=== PATIENT | male | born 1990 | race African-American/Black ===

== ENCOUNTER 2024-06-04 21:30 | Emergency (ER) | payer OTHER, SELFPAY ==
[2024-06-04 21:33] VITALS: BP 220/146
[2024-06-04 21:51] VITALS: BP 214/146
[2024-06-04 22:00] VITALS: BP 210/139
[2024-06-04 22:07] VITALS: BMI 33.6
[2024-06-04 22:30] VITALS: BP 202/141
[2024-06-04 23:00] VITALS: BP 205/149
--- NOTE | 2024-06-04 23:09 | ED.GENMED ---
History of Present Illness
<Emma Rodriguez MD, Resident - Last Filed: 06/04/24 23:43>
General
Chief Complaint: Blood Pressure Problem
Source: patient
Exam Limitations: none
Time Seen by Provider: 06/04/24 22:51
Nursing documentation reviewed up to this point in time: agreed with except (patient is non compliant with his medications.)
Travel History
Have you traveled to any high risk areas for coronavirus over the past 14 days?: No
Have you had any contact with someone who has COVID-19?: No
Do you have any symptoms of coronavirus? Fever > 100 degrees, chills, cough, shortness of breath, sore throat, loss of taste or smell, muscle aches, or headache?: No
History of Present Illness
History of Present Illness:
Mr. Paige is a 33-year-old male with past medical history of hypertension, diabetes, description of heart failure with a YULISA evaluation presents to the ER from shelter for elevated hypertension-blood pressure at 239/140 upon arrival. Patient
stated that he had a diagnosis of hypertension for which he was on 5 different medications and had a recent hospitalization at [facility], records verified by my supervising provider Dr. Garibay. Patient was taking atorvastatin, carvedilol, Lasix,
losartan, spironolactone at home. Unfortunately he ran out of prescription and he lost access to his insurance as he lost his job, hence he did not take any medications over the last 3 days. During his most recent hospital admission in February he was
diagnosed to have severe mitral regurgitation with congestive heart failure, HFrEF ejection fraction at 40%, and was on GDMT. In 2017 patient had a HbA1c greater than 14 for which he was hospitalized, however after being on diabetic medications and
weight loss his HbA1c came down to 5.5 in February hospital admission and he was removed off of any diabetic medications.
Today with his elevated blood pressure he remains to be asymptomatic. He denies having any chest pain, palpitations, shortness of breath on exertion, orthopnea, PND, lightheadedness, blurring of vision, near syncopal or syncopal episodes, weakness
and altered sensation in his limbs, and paresthesias
Past History
<Emma Rodriguez MD, Resident - Last Filed: 06/04/24 23:43>
Past History
ED Past Medical History: Other (Hypertension, hyperlipidemia, diabetes mellitus-resolved, severe MR, HFmrEF-40% EF.)
ED Past Surgical History: None
Patient has exhibited threatening behavior?: No
Social History
Tobacco: Non-smoker
Alcohol: None
Drug: None
Personal: Single
Living: shelter
Employment: Not employed
Family History
Family History: Other
Review of Systems
<Emma Rodriguez MD, Resident - Last Filed: 06/04/24 23:43>
Review of Systems
Allergies reviewed?: Yes
All Other Systems: ROS reviewed and negative except as documented in HPI and ROS
Phy Exam
<Emma Rodriguez MD, Resident - Last Filed: 06/04/24 23:43>
General Physical Exam
General Presentation: well appearing and no apparent distress
General Skin: warm
General Habitus: normal
General Hydration: appears well hydrated
Cardiovascular Exam
Cardiovascular Exam: regular rate/rhythm, no edema, no gallop and systolic murmur
Systolic Murmur: 3/6
Heart Sounds: normal
Pulmonary Exam
Pulmonary Exam: lungs clear, no respiratory distress, no rales, no crackles and no rhonchi
Gastrointestinal Exam
Gastrointestinal Exam: normal bowel sounds, non tender, soft and non distended
NIH Stroke Score
Level of Consciousness: 0 - Alert
LOC questions: 0-Answers both correctly
LOC Commands: 0-Performs both correctly
Best Gaze: 0-Normal
Visual Herring: 0=Normal, no visual loss
Facial palsy: 0=Normal, symmetrical
Motor - Right Arm: 0=No drift 10 seconds
Motor - Left Arm: 0=No drift 10 seconds
Motor - Right Le-No drift 5 seconds
Motor - Left Le-No drift 5 seconds
Limb Ataxia: 0-Absent
Sensation: 0-Normal
Best Language: 0-No aphasia
Dysarthria: 0-Normal
Extinction and Inattention: 0-No abnormality
Total Score:: 0
Skin Exam
Skin Exam: normal color and warm/dry
Psychiatric Exam
Psychiatric Exam: normal mood/affect
Course
<Emma Rodriguez MD, Resident - Last Filed: 06/04/24 23:43>
Orders/Labs/Results
Orders:
Orders
06/04/24 21:37
ECG [Electrocardiogram (*1)] Urgent
Reason for Study: Hypertension, Benign
EKG- Treatment ONCE
06/04/24 23:02
Metoprolol [Lopressor] 5 mg IV NOW STA
06/04/24 23:17
Carvedilol [Coreg] 12.5 mg PO NOW STA
Furosemide [Lasix] 40 mg PO NOW STA
Losartan [Cozaar] 50 mg PO NOW STA
Spironolactone [Aldactone] 25 mg PO NOW STA
06/04/24 23:22
Atorvastatin [Lipitor] 20 mg PO NOW STA
06/04/24 23:02
06/04/24 23:02
Vital Signs
Initial and Last Documented VS:
Initial Vital Signs
Temp Pulse Resp BP Pulse Ox
97.8 F 78 18 220/146 100
06/04/24 21:33 06/04/24 21:33 06/04/24 21:33 06/04/24 21:33 06/04/24 21:33
Last Documented Vital Signs
Temp Pulse Resp BP Pulse Ox
97.8 F 82 23 210/139 100
06/04/24 21:33 06/04/24 22:00 06/04/24 22:00 06/04/24 22:00 06/04/24 22:00
<Gerda Garibay DO - Last Filed: 06/04/24 23:33>
Orders/Labs/Results
Orders:
Orders
06/04/24 21:37
ECG [Electrocardiogram (*1)] Urgent
Reason for Study: Hypertension, Benign
EKG- Treatment ONCE
06/04/24 23:02
Metoprolol [Lopressor] 5 mg IV NOW STA
06/04/24 23:17
Carvedilol [Coreg] 12.5 mg PO NOW STA
Furosemide [Lasix] 40 mg PO NOW STA
Losartan [Cozaar] 50 mg PO NOW STA
Spironolactone [Aldactone] 25 mg PO NOW STA
06/04/24 23:22
Atorvastatin [Lipitor] 20 mg PO NOW STA
06/04/24 23:02
06/04/24 23:02
Vital Signs
Initial and Last Documented VS:
Initial Vital Signs
Temp Pulse Resp BP Pulse Ox
97.8 F 78 18 220/146 100
06/04/24 21:33 06/04/24 21:33 06/04/24 21:33 06/04/24 21:33 06/04/24 21:33
Last Documented Vital Signs
Temp Pulse Resp BP Pulse Ox
97.8 F 82 23 210/139 100
06/04/24 21:33 06/04/24 22:00 06/04/24 22:00 06/04/24 22:00 06/04/24 22:00
<Emma Rodriguez MD, Resident - Last Filed: 06/04/24 23:43>
MDM/Problems Addressed
Differential Diagnosis Includes:
Severe hypertension due to lack of access to medications
MDM/Problems Addressed:
Resuming patient's on his home meds
Chronic conditions affecting care: HTN and Cardiomyopathy
Acute Exacerbation and/or Progression of Chronic Illness: Cardiomyopathy
<Emma Rodriguez MD, Resident - Last Filed: 06/04/24 23:43>
Comment
Comment:
Patient previous hospital records verified through [facility] by Dr. Garibay.
History of HFmrEF-40%, cardiomyopathy, on guideline directed medical therapy except SGLT2's, resume patient on his home meds-Coreg 12.5 mg p.o. twice daily, Lasix 20 mg p.o. daily, Lipitor 20 mg once a day, losartan 50 mg once a day, spironolactone
25 mg once a day. No labs needed. Patient eventually needs a primary care physician and follow-up with a bone drier.
*Critical Care Note
Total Time (30-74mins, 75-104mins- exclusive of procedures): Not Applicable
ED Attending Note
<Emma Rodriguez MD, Resident - Last Filed: 06/04/24 23:43>
-
Portions of this chart may have been created with voice recognition software.� Occasional wrong word or��sound alike� substitutions may have occurred due to the inherent limitations of voice recognition software.
<Gerda Garibay, DO - Last Filed: 06/04/24 23:33>
ED Attending Note
Patient seen and examined by attending physician: Yes
I performed a history and physical exam of patient and discussed management with resident, I reviewed resident's note and agree with documented findings and plan of care.: Yes
ED Attending Note:
This is a 33-year-old gentleman with longstanding history of hypertension as well as history of cov-gjgcsio-ckhdhsuic diabetes who presents with [facility] after being picked up on a outstanding warrant and being taken to [facility] where he was found to have significantly elevated blood pressure and sent to the ED for further evaluation. He remains completely asymptomatic.
He was hospitalized early February at [facility] with complaints of shortness of breath, found to be significantly hypertensive as well as mild CHF. Had not been taking any medications at that time.
Echocardiogram showed LVH, moderate to severe MR, global hypokinesis with a EF of 35 to 40%. Although history of diabetes, hemoglobin A1c excellent at 5.5.
He was started on losartan 50 mg, Coreg 12.5 mg twice daily, furosemide 40 mg once daily, Aldactone 25 mg once daily and atorvastatin 20 mg at bedtime.
Patient admits that he has not followed up since that hospitalization and has unfortunately ran out of his medications last week.
He remains active, has had no shortness of breath, no chest pain, no headache.
Previous diabetes with elevated hemoglobin A1c in 2017. Patient has had successful weight loss since then with hemoglobin A1c most recently of 5.5. Has not required diabetes medications.
All other laboratory studies during that hospitalization within normal limits. Creatinine 1.02.
Total cholesterol 199, HDL 33, LDL 123, triglycerides 217.
33-year-old gentleman appears his stated age, awake and alert, pleasant, easily communicative and in no acute distress.
Heart: Regular rate and rhythm, 3/6 holosystolic murmur.
Lungs are clear to auscultation, respirations are easy nonlabored.
Extremities without clubbing or cyanosis nor edema. Peripheral pulses are full and equal.
Patient noted to be significantly hypertensive. Has a longstanding history of hypertension as well as strong family history of similar.
Hospitalized at [facility] in February for acute CHF. Started on goal-directed therapy with carvedilol, losartan, Aldactone as well as atorvastatin and furosemide.
Has since run out of these medications but overall feeling well, offers no complaints.
Presents with asymptomatic hypertension.
At this point no indication for laboratory studies but would recommend resumption of previous medications as above.
Ultimately patient will require follow-up with cardiology.
At this point patient is medically stable and cleared for incarceration.
Discharge Plan
Departure
Patient Disposition: Assisted
Date of Disposition: 06/04/24
Time of Disposition: 23:39
Patient with high blood pressure during this ER visit?: Yes
Condition: Fair
Covid-19: Not Applicable
Discharge Problem:
Accelerated essential hypertension, Heart failure with mildly reduced ejection fraction (HFmrEF), Moderate to severe mitral regurgitation, Cardiomyopathy due to hypertension
Instructions: BLOOD PRESSURE, High Blood Pressure (DC)
Prescriptions:
New
carvedilol [Coreg] 12.5 mg tablet
12.5 mg PO Q12H Qty: 90 3RF
losartan 50 mg tablet
50 mg PO DAILY Qty: 30 3RF
furosemide [Lasix] 20 mg tablet
20 mg PO DAILY Qty: 30 3RF
atorvastatin [Lipitor] 20 mg tablet
20 mg PO DAILY Qty: 30 3RF
spironolactone 25 mg tablet
25 mg PO DAILY Qty: 30 3RF
Referrals:
[facility],Facility [Family Provider] -
Activity Restrictions/Additional Instructions:
Please take your medications as prescribed.
Follow-up with your primary care physician and bone drier in future as required.
Interventions
Interventions:
*Risk Screen - Suicide Last Done: 06/04/24 21:33
*Neglect/Abuse Screening Last Done: 06/04/24 21:33
ED- Fall Risk Assessment Last Done: 06/04/24 21:54
*ED COVID-19 Vaccine History Last Done: 06/04/24 21:54
ED- Cardiac Assessment Last Done: 06/04/24 21:54
ED- Neurological Assessment Last Done: 06/04/24 21:54
ED- Pulmonary Assessment Last Done: 06/04/24 21:54
Discharge Date and Time
Print Language: SERBIAN
[2024-06-04 23:30] VITALS: BP 213/144
[2024-06-04] MEDS: LIPITOR 20 MG PO (23:49)
[2024-06-04] MEDS: ALDACTONE 25 MG PO (23:49)
[2024-06-04] MEDS: COREG 12.5 MG PO (23:49)
[2024-06-04] MEDS: COZAAR 50 MG PO (23:49)
== END 2024-06-04 23:55 ==
LOC: EMR 21:30
PROVIDERS: EMERGENCY PHYSICIAN Emergency Medicine
DX: I11.0 Hypertensive heart disease with heart failure (principal); I50.9 Heart failure, unspecified; I43 Cardiomyopathy in diseases classified elsewhere; I34.0 Nonrheumatic mitral (valve) insufficiency; E11.9 Type 2 diabetes mellitus without complications; Z59.71 Insufficient health insurance coverage; Z56.0 Unemployment, unspecified; I50.20 Unspecified systolic (congestive) heart failure; Z91.148 Patient's other noncompliance with medication regimen for other reason; Z86.16 Personal history of COVID-19
CPT/HCPCS: 99283; 93005